=== PATIENT | male | born 1980 | race Caucasian/White ===

== ENCOUNTER 2019-08-31 09:33 | Emergency (ER) | payer SELFPAY ==
[~2019-08-31] VITALS: Ht 167.6 cm; Wt 74.0 kg
[2019-08-31] MEDS ORDERED: CYCLOBENZAPR5 MG PO (10:43)
[2019-08-31 10:46] VITALS: BP 134/77
== END 2019-08-31 10:46 | disposition home or self-care (01) | DRG 563 ==
LOC: ED 09:33
DX: S39.012A Strain of muscle, fascia and tendon of lower back, initial encounter (principal); F17.210 Nicotine dependence, cigarettes, uncomplicated; X58.XXXA Exposure to other specified factors, initial encounter